=== PATIENT | female | born 1995 | race African-American/Black ===

== ENCOUNTER 2017-03-08 08:15 | Emergency (ER) | payer SELFPAY ==
[~2017-03-08] VITALS: Ht 162.6 cm; Wt 69.0 kg
[2017-03-08 09:15] VITALS: BP 129/75
[2017-03-08] MEDS ORDERED: BACITRACIN ZINC OINT UDPKT TOP ONE (09:30)
[2017-03-08] MEDS ORDERED: ACETAMINOPHEN 325MG TABLET PO ONE (09:30)
== END 2017-03-08 10:12 | disposition home or self-care (01) ==
LOC: ER 09:27
DX: T23.012A Burn of unspecified degree of left thumb (nail), initial encounter (principal); T23.011A Burn of unspecified degree of right thumb (nail), initial encounter; T75.09XA Other effects of lightning, initial encounter; J45.909 Unspecified asthma, uncomplicated; X08.8XXA Exposure to other specified smoke, fire and flames, initial encounter; Y93.89 Activity, other specified; Y92.89 Other specified places as the place of occurrence of the external cause; Y99.8 Other external cause status
CPT/HCPCS: 99283; X7700